=== PATIENT | female | born 1940 | race Caucasian/White ===

== ENCOUNTER 2016-04-25 15:05 | Outpatient (CLI) ==
[2015-10-27 13:49] VITALS: BMI 21.0
--- NOTE | 2016-04-25 15:52 | DI ---
EXAM: PA and lateral views of the chest HISTORY: Cough. COMPARISON: CT chest 10/12/2015 FINDINGS: The cardiomediastinal silhouette is normal. There is no pneumothorax or pleural effusion . There is no consolidation, nodule or mass. There is mild central airway thickening. The osseous s tructures demonstrate a right shoulder arthroplasty and degenerative disease of the spine. IMPRESSION: Mild central airway thickening may represent reactive airways changes versus bronchitis. There is n o acute consolidation.
--- NOTE | 2016-04-25 15:53 | DI ---
EXAM: Right ankle. Three-view HISTORY: Effusion right ankle COMPARISON: None FINDINGS: No acute fracture dislocation. Chronic remodeling of the distal diaphysis tibia is incomp letely imaged, consistent with old healed fracture. Ankle mortise symmetric. Small plantar calcane al spur and mild calcaneal enthesopathy. IMPERSSION: No acute fracture or dislocation.
--- NOTE | 2016-04-25 15:55 | DI ---
EXAM: RIGHT FOOT, 3 VIEWS HISTORY: Foot pain FINDINGS: No comparison. Bones appear demineralized. There is diffuse arthropathy, moderate at th e interphalangeal joints most noted fourth and fifth digits. No displaced fracture is obvious. No ksai joint dislocation. There is mild bony spurring at the level of the posterior calcaneus consis tent with early calcific tendinosis. No joint effusion. IMPRESSION: Generalized demineralization. Osteoarthritis. No fracture or dislocation.
[2016-04-25 16:01] LABS: BASOPHILS % (AUTO) 0.7 % (0.0-3.0); EOSINOPHILS # (AUTO) 0.1 K/ul (0.0-0.7); EOSINOPHILS % (AUTO) 0.9 % (0.0-7.0); HEMATOCRIT 34.3 % (37.0-47.0); HEMOGLOBIN 10.8 g/dl (12.0-16.0); IMMATURE GRANULOCYTE % (AUTO) 0.2 % (0.0-5.0); LYMPHOCYTES # (AUTO) 2.1 K/uL (0.60-3.4); MEAN CORPUSCULAR HEMOGLOBIN 28.3 pg (27.0-31.0); MEAN CORPUSCULAR HGB CONC 31.5 (31.8-35.4); MEAN CORPUSCULAR VOLUME 89.8 fl (81.0-99.0); MONOCYTES # (AUTO) 0.4 K/uL (0.4-2.0); NEUTROPHILS # (AUTO) 2.8 K/ul (2.0-6.9); NEUTROPHILS % (AUTO) 52.2; PLATELET COUNT 200 10^3/uL (140-440); RED BLOOD COUNT 3.82 10^6/ul (4.20-5.40); WHITE BLOOD COUNT 5.43 K/ul (4.6-10.2)
--- NOTE | 2016-04-25 16:01 | US ---
Examination: Ultrasonographic graf-scale and color Doppler imaging of the right lower extremity patrice p venous structures. Comparison: None available. Reason for study: Right ankle effusion. FINDINGS: There is spontaneous flow with adequate compression and respiratory augmentation seen wit hin the right common femoral, greater saphenous, profunda, superficial femoral, popliteal, peroneal, posterior tibial, and anterior tibial veins. No obvious findings of deep venous occlusive disease. Impression: No ultrasonographic evidence of DVT in the right lower extremity.
--- NOTE | 2016-04-25 16:08 | CT ---
EXAM: CT abdomen pelvis without contrast HISTORY: Abdominal distension/gaseous distension COMPARISON: CT abdomen pelvis 11/16/2015 and 10/12/2015 TECHNIQUE: Serial axial images of the abdomen pelvis were performed from the lung bases through the inferior pelvis without contrast. These were viewed in multiple planes. FINDINGS: The lung bases demonstrate mild bibasilar atelectasis. There is a moderate hiatal hernia . The heart is unremarkable. The liver is unremarkable. The gallbladder is normal in appearance. The adrenal glands are unremar kable. The kidneys demonstrate no stones, hydronephrosis or hydroureter. The spleen is normal. Th e pancreas demonstrates few scattered calcifications and mild atrophy. The common duct is tortuous and unchanged and mildly enlarged. Stomach is unremarkable. The small bowel in the abdomen and pelvis is unremarkable. The colon demonstrates diverticulosis wi thout diverticulitis. Urinary bladder is distended. The uterus is unremarkable. The osseous struc tures demonstrate no focal lytic or blastic lesion. IMPRESSION: 1. No CT abnormality to account for patient's abdominal distension. 2. Diverticulosis without diverticulitis. 3. Moderate stable hiatal hernia. 4. Tortuous and dilated cystic and / or common duct is not significantly changed from previous exam ination.
[2016-04-25 16:23] LABS: ALBUMIN/GLOBULIN RATIO 1.25; ANION GAP 14.2; BILIRUBIN,TOTAL 0.56 mg/dL (0.00-1.20); BUN/CREATININE RATIO 14.44; CALCIUM 9.3 mg/dL (8.2-10.2); CREATININE 0.9 mg/dL (0.60-1.30); POTASSIUM 3.2 mmol/L (3.5-5.10); TOTAL PROTEIN 7.2 g/dL (5.8-8.1)
== END 2016-04-25 15:06 | disposition home or self-care (01) ==
LOC: RAD 15:05
PROVIDERS: ATTEND General Practice
DX: R05 Cough (principal); R14.0 Abdominal distension (gaseous); R52 Pain, unspecified; M25.471 Effusion, right ankle; M79.671 Pain in right foot; I10 Essential (primary) hypertension; F41.9 Anxiety disorder, unspecified
CPT/HCPCS: 36415; 80053; 85025; 85379

== ENCOUNTER 2016-04-28 01:20 | Outpatient (CLI) | payer OTHER ==
[2015-10-27 13:49] VITALS: BMI 21.0
== END 2016-04-28 01:21 ==
LOC: AMBL 01:20
PROVIDERS: ATTEND Internal Medicine Geriatric Medicine
DX: M25.552 Pain in left hip (principal); M79.602 Pain in left arm; W01.0XXA Fall on same level from slipping, tripping and stumbling without subsequent striking against object, initial encounter

== ENCOUNTER 2016-06-18 12:03 | Outpatient (CLI) ==
[2015-10-27 13:49] VITALS: BMI 21.0
--- NOTE | 2016-06-18 12:28 | DI ---
EXAM: CHEST FRONTAL AND LATERAL VIEWS HISTORY: Fever. COMPARISON: 04/25/2016 FINDINGS: Heart size remains within normal limits. Ectasia and moderate atherosclerotic disease of the thoracic aorta. There is diffuse, chronic appearing interstitial accentuation. Lungs are hype rinflated and there is relative lucency of the lung zones suggesting emphysema. No acute infiltrate s are seen. There is no consolidation, visible pleural fluid or pneumothorax. Small hiatal hernia. Bones reveal no acute fracture. IMPRESSION: 1. Chronic lung changes with no acute cardiopulmonary process. 2. Small hiatal hernia.
[2016-06-18 13:33] LABS: BASOPHILS % (AUTO) 0.5 % (0.0-3.0); EOSINOPHILS % (AUTO) 0.5 % (0.0-7.0); HEMATOCRIT 36.4 % (37.0-47.0); HEMOGLOBIN 11.6 g/dl (12.0-16.0); LYMPHOCYTES # (AUTO) 1.4 K/uL (0.60-3.4); LYMPHOCYTES % (AUTO) 31.6 (10.0-50.0); MEAN CORPUSCULAR HEMOGLOBIN 27.8 pg (27.0-31.0); MEAN CORPUSCULAR HGB CONC 31.9 (31.8-35.4); MEAN CORPUSCULAR VOLUME 87.3 fl (81.0-99.0); MONOCYTES # (AUTO) 0.2 K/uL (0.4-2.0); MONOCYTES % (AUTO) 5.5 (0-10); NEUTROPHILS # (AUTO) 2.7 K/ul (2.0-6.9); NEUTROPHILS % (AUTO) 61.9; PLATELET COUNT 218 10^3/uL (140-440); RED BLOOD COUNT 4.17 10^6/ul (4.20-5.40)
[2016-06-18 13:41] LABS: BILIRUBIN,URINE Negative (NEGATIVE); KETONES,URINE Negative (NEGATIVE); LEUKOCYTE ESTERASE ,URINE Negative (NEGATIVE); NITRITE,URINE Negative (NEGATIVE); PROTEIN,URINE Negative (NEGATIVE); URINE, BLOOD 2+ (NEGATIVE)
[2016-06-18 13:50] LABS: ADD URINE MICROSCOPIC YES
[2016-06-18 14:10] LABS: ALBUMIN 4.2 g/dL (3.4-5.0); ALBUMIN/GLOBULIN RATIO 1.17; ANION GAP 12.1; BILIRUBIN,TOTAL 0.41 mg/dL (0.00-1.20); BUN/CREATININE RATIO 11.11; CALCIUM 9.5 mg/dL (8.2-10.2); CREATININE 0.99 mg/dL (0.60-1.30); POTASSIUM 3.1 mmol/L (3.5-5.10); TOTAL PROTEIN 7.8 g/dL (5.8-8.1)
[2016-06-18 16:51] LABS: OCCULT BLOOD INTERNAL QC 1 INTERNAL QC VALID; OCCULT BLOOD SAMPLE 1 NEGATIVE (NEGATIVE)
[2016-06-18 16:52] LABS: OCCULT BLOOD INTERNAL QC 2 INTERNAL QC VALID; OCCULT BLOOD INTERNAL QC 3 INTERNAL QC VALID
== END 2016-06-18 12:04 | disposition home or self-care (01) ==
LOC: LAB 12:03 → RAD 12:04
PROVIDERS: ATTEND General Practice
DX: R10.9 Unspecified abdominal pain (principal); I10 Essential (primary) hypertension; I83.90 Asymptomatic varicose veins of unspecified lower extremity; I87.2 Venous insufficiency (chronic) (peripheral); G47.00 Insomnia, unspecified; F41.9 Anxiety disorder, unspecified; R01.1 Cardiac murmur, unspecified; R09.89 Other specified symptoms and signs involving the circulatory and respiratory systems; R50.9 Fever, unspecified; Z79.899 Other long term (current) drug therapy
CPT/HCPCS: 36415; 80053; 81001; 82272; 84443; 85025

== ENCOUNTER 2016-06-27 16:07 | Outpatient (CLI) ==
[2015-10-27 13:49] VITALS: BMI 21.0
--- NOTE | 2016-06-27 16:46 | CT ---
EXAM: CT of the head without contrast History: Headache. Comparison: Head CT 10/12/2015 Technique: Multiplanar CT images through the head were obtained without the administration of IV co ntrast Findings: Head with the neck and the visualized paranasal sinuses and mastoid air cells are clear in general. No acute calvarial abnormalities. Intracranially there is stable mild atrophy. No dominant mass or midline shift. No hydrocephalous. No acute intracranial hemorrhage or abnormal extraaxial fluid collections. No significant interva l change in the periventricular and subcortical white matter hypodensities and small old lacunar inf arctions. Impression: No acute intracranial hemorrhage. Stable chronic brain changes.
== END 2016-06-27 16:08 | disposition home or self-care (01) ==
LOC: RAD 16:07
PROVIDERS: ATTEND General Practice
DX: R51 Headache (principal)

== ENCOUNTER 2016-07-01 14:18 | Emergency (ER) ==
[2016-07-01 14:24] VITALS: BP 165/90; TEMP 97.9; BMI 18.8
[2016-07-01] MEDS ORDERED: NORCO 10-325 PO STA (14:34)
--- NOTE | 2016-07-01 14:56 | ED.PDOC ---
General ED Provider: Dr. KALA VIVAR Chief Complaint: Headache Stated Complaint: headache Time Seen by Physician: 02:30 (seen with [employer] PUBL[employer] AT ALL TIMES ) Mode of Arrival: Walk-In Information Source: Patient Exam Limitations: No limitations [facility] Nursing and Triage Documentation Reviewed and Agree: Yes Neurological Complaint Exam - Headache Complaint/Exam Onset: Gradual Duration: 3 DAYS Symptoms Are: Still present Timing: Constant Episodes Lasting: Days Worst Headache Ever: No Initial Severity: Mild Current Severity: Mild Location: Right, Temporal Character: Reports: Dull Aggravating: Reports: None Alleviating: Reports: None Associated Signs and Symptoms: Denies: Dizziness, Seizure, Nausea, Vomiting, Sinus pressure, Fever, Neck pain, Neck stiffness, Decreased LOC, Visual changes Related History: Reports: Similar episode Related Surgical History: Reports: None SAH Risk Factors: Reports: None Meningitis Risk Factors: Reports: None SDH Risk Factors: Reports: None Temporal Arteritis Risk Factors: Reports: Female, , Over 60 years old Normal Head CT Within Last 12 Months: Yes (1 DAY AGO) Fundoscopic Exam: Present: Normal Findings Papilledema Present: No Temporal Artery Tenderness: Present: None Sinus Tenderness: Present: None TMJ Tenderness: Present: None Glascow Coma Scale (see protocol): 15 Meningeal Signs Positive: No Pain on Passive Flexion-Positive Kernig's: No ROM Limited In: No Limitiations Focal Weakness: Present: None Focal Sensory Loss: Present: None Gait: Normal Review of Systems - Review Of Systems Constitutional: Reports: No symptoms Eyes: Reports: No symptoms Ears, Nose, Mouth, Throat: Reports: No symptoms Respiratory: Reports: No symptoms Cardiac: Reports: No symptoms GI: Reports: No symptoms : Reports: No symptoms Musculoskeletal: Reports: No symptoms Skin: Reports: No symptoms Neurological: Reports: Headache Endocrine: Reports: No symptoms Hematologic/Lymphatic: Reports: No symptoms All Other Systems: Reviewed and Negative Past Medical History - Past Medical History Endocrine: Reports: None Cardiovascular: Reports: Hypertension Respiratory: Reports: Other Hematological: Reports: None Gastrointestinal: Reports: None Genitourinary: Reports: None Neuro/Psych: Reports: Anxiety Musculoskeletal: Reports: None Cancer: Reports: None Last Menstrual Period: menopause Other Pertinent Past Medical History: GALL BLADDER, BAQCK , LEG SURGERY,LENS SURGERY - Surgical History General Surgical History: Reports: Cholecystectomy, Orthopedic ( LEG SURGERY), Back Surgery, Other (LENS SURGERY) - Family History Family History: Reports: Unknown - Social History Smoking Status: Never smoker Hx Substance Use: No Alcohol Screening: None - Immunizations Tetanus Shot up to Date: No Physical Exam - Physical Exam Appearance: Well-appearing, No pain distress, Well-nourished Eyes: MARIBEL, EOMI, Conjunctiva clear ENT: Ears normal, Nose normal, Oropharynx normal Respiratory: Airway patent, Breath sounds clear, Breath sounds equal, Respirations nonlabored Cardiovascular: RRR, Pulses normal, No rub, No murmur GI/: Soft, Nontender, No masses, Bowel sounds normal, No Organomegaly Musculoskeletal: Normal strength, ROM intact, No edema, No calf tenderness Skin: Warm, Dry, Normal color Neurological: Sensation intact, Motor intact, Reflexes intact, Cranial nerves intact, Alert, Oriented Psychiatric: Affect appropriate, Mood appropriate Critical Care Note - Critical Care Note Total Time (mins): 0 Course - Course Orders, Labs, Meds: Orders Category Date Time Status Hydrocodone Bit/Acetaminophen [[place] 10-325] MEDS 07/01/16 14:34 Discontinued 1 tab PO ONCE STA Medications Discontinued Medications Generic Name Dose Route Start Last Admin Trade Name Wagnerq PRN Reason Stop Dose Admin Acetaminophen/Hydrocodone Bitart 1 tab 07/01/16 14:34 07/01/16 14:41 [place] 10-325 PO 07/01/16 14:35 Not Given ONCE STA Vital Signs: Temp Pulse Resp BP Pulse Ox 07/01/16 14:19 97.9 F 82 18 165/90 H 98 Departure - Departure Time of Disposition: 14:57 (REFUSED LABS IMAGING DAUGHTER START UP SPECIALIST PRESENT RISKS DISCUSSED ) Disposition: HOME SELF-CARE Discharge Problem: Headache Qualifiers: Headache type: unspecified Headache chronicity pattern: chronic headache Instructions: General Headache (ED) Condition: Good Pt referred to PMD for follow-up: Yes Additional Instructions: Please call your Family Physician as soon as possible to schedule a follow-up appointment. Allergies/Adverse Reactions: Allergies losartan Allergy (Unknown, Unverified 07/02/16 13:56) Patient thinks she may have had a reaction to this medication. She is not sure. Currently taking this medication. Home Medications: Ambulatory Orders Alprazolam 0.5 mg PO DAILY 02/13/14
== END 2016-07-01 15:15 | disposition home or self-care (01) ==
LOC: ED 14:18
DX: R51 Headache (principal); I10 Essential (primary) hypertension
CPT/HCPCS: 99281

== ENCOUNTER 2016-07-04 08:29 | Outpatient (CLI) ==
--- NOTE | 2016-07-04 10:03 | DI ---
EXAM: Double contrast upper GI. History: Dysphagia. Comparison: CT abdomen pelvis 04/25/2016 Technique: Patient was given gas crystals. Patient was then given oral barium and multiple spot fi lms of the esophagus, stomach and duodenum were obtained in various projections. Findings: The course and caliber of the esophagus are within normal limits. No esophageal mucosal lesions or filling defects. Moderate sized hiatal hernia. Stomach is distended. Prominent gastric folds and at least one filling defect or ulceration seen al lm the greater curvature of the stomach. The course and caliber of the duodenum is within normal limits. No extravasation of contrast materi al. Impression: 1. Gastric filling defect could represent a benign or malignant ulceration. Correlate with upper e ndoscopy. 2. There are also prominent gastric folds. 3. Moderate hiatal hernia.
== END 2016-07-04 08:30 | disposition home or self-care (01) ==
LOC: RAD 08:29
PROVIDERS: ATTEND General Practice
DX: R13.10 Dysphagia, unspecified (principal)

== ENCOUNTER 2017-04-18 06:21 | Outpatient (CLI) | END 2017-04-18 06:22 | disposition home or self-care (01) | LOC: LAB 06:21 | PROVIDERS: ATTEND Nurse Practitioner Family | DX: I10 Essential (primary) hypertension (principal); I49.9 Cardiac arrhythmia, unspecified; I50.43 Acute on chronic combined systolic (congestive) and diastolic (congestive) heart failure; R10.84 Generalized abdominal pain; E75.6 Lipid storage disorder, unspecified; D64.9 Anemia, unspecified | CPT/HCPCS: 36415; 80053; 80061; 82150; 82607; 82728; 83540; 83550; 83690; 83880; 84466; 85025; 85045 ==

== ENCOUNTER 2017-07-26 12:21 | Outpatient (CLI) | END 2017-07-26 12:22 | disposition home or self-care (01) | LOC: FCC-LAB 12:21 | PROVIDERS: ATTEND Nurse Practitioner Family | DX: I10 Essential (primary) hypertension (principal); I49.9 Cardiac arrhythmia, unspecified; Z79.899 Other long term (current) drug therapy | CPT/HCPCS: 36415; 80053; 80061; 81001; 85025 ==

== ENCOUNTER 2017-10-28 09:58 | Outpatient (CLI) ==
--- NOTE | 2017-10-28 10:47 | DI ---
EXAM: Three views of the lumbar spine. History: Lower back pain. Findings: Osteopenia. Atherosclerotic vascular calcifications. No acute fracture or subluxation of the lumbar spine. Moderate disc space narrowing at L5-S1. Mild to moderate disc space narrowing seen elsewhere. A few prominent loops of small bowel seen within the abdomen are nonspecific. Impression: No acute osseous abnormality. Degenerative changes
== END 2017-10-28 09:59 | disposition home or self-care (01) ==
LOC: RAD 09:58
PROVIDERS: ATTEND Emergency Medicine
DX: M54.5 Low back pain (principal)

== ENCOUNTER 2017-11-04 05:18 | Outpatient (CLI) | payer OTHER | END 2017-11-04 05:37 | disposition short-term general hospital (02) | LOC: AMBL 05:18 | PROVIDERS: ATTEND Internal Medicine | DX: M54.5 Low back pain (principal); R06.02 Shortness of breath; S32.000D Wedge compression fracture of unspecified lumbar vertebra, subsequent encounter for fracture with routine healing ==

== ENCOUNTER 2018-04-29 09:04 | Outpatient (CLI) ==
--- NOTE | 2018-04-29 10:03 | DI ---
EXAM: KUB supine and upright HISTORY: Abdominal pain . FINDINGS: Bowel gas pattern is nonspecific with mild scattered gaseous distension mostly in the small intestine. There is no excess fecal retention. The rectum is clear. No suspicious calcifications. Multiple densities over the spine suggesting previous kyphoplasty. No free air. IMPRESSION: 1. Nonspecific bowel gas pattern with no evidence of bowel obstruction. No free air.
--- NOTE | 2018-04-29 10:04 | DI ---
EXAM: Single view of the chest and four views of the left ribs. History: Left-sided rib pain. Comparison: Chest radiograph 07/29/2017 Findings: Heart size is normal. Coronary calcifications. Hiatal hernia again noted. No focal cons olidation. No appreciable pleural fluid and no pneumothorax. Right shoulder arthroplasty hardware. Multiple kyphoplasties seen within the spine. No acute displaced rib fractures identified. Impression: 1. No acute findings. 2. Hiatal hernia. 3. Coronary artery disease
== END 2018-04-29 09:05 | disposition home or self-care (01) ==
LOC: RAD 09:04
PROVIDERS: ATTEND Family Medicine
DX: R10.9 Unspecified abdominal pain (principal)
CPT/HCPCS: 81001

== ENCOUNTER 2018-11-04 13:25 | Outpatient (CLI) | END 2018-11-04 13:26 | disposition home or self-care (01) | LOC: RHC-LAB 13:25 → FCC-LAB 13:26 | PROVIDERS: ATTEND Family Medicine | DX: R30.0 Dysuria (principal) | CPT/HCPCS: 87086 ==